=== PATIENT | female | born 1985 ===

== ENCOUNTER 2017-11-07 05:34 | Inpatient (IN) | payer OTHER ==
[2017-11-07] MEDS ORDERED: Ondansetron 4 MG/2 ML SDV IVPUSH PRN (06:18)
[2017-11-07] MEDS ORDERED: Lidocaine 1% 50 ML MDV INJECT ONE (06:18)
[2017-11-07] MEDS ORDERED: Sodium Chloride 0.9% 10 ML Syringe FLUSH PRN (06:18)
[2017-11-07] MEDS ORDERED: Terbutaline 1 MG/ML SDV IV ONE (07:30)
[2017-11-07] MEDS ORDERED: Ampicillin 2 GM in Sodium Chloride 0.9% 100 ML IV ONE (07:30)
--- NOTE | 2017-11-07 08:08 | HP ---
DATE OF ADMISSION: 11/07/2017 ADMISSION DIAGNOSIS: A 39 and 2/7th week intrauterine , breech presentation, increased distance from the hospital. HISTORY OF PRESENT ILLNESS: The patient is a 32-year-old 6, para 5-0-0-5 white female who is admitted for external cephalic version/induction of labor/possible section if version is not successful. 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 Her DAIJA is 11/12/2017, is dated by an early ultrasound done on 05/10/2017 at 13 weeks. This is supported by a second ultrasound done later in the . She is admitted for an attempt at external cephalic version. On last evaluation on 11/02/2017, the baby was transverse with head to the right. Decision was made to attempt an external cephalic version and if unsuccessful, to proceed with primary section. The procedures, their risks, limitations, and alternatives of care were discussed in detail with the patient. She appears to understand and wishes to proceed. Her previous deliveries include 5 vaginal deliveries in 2005, 2006, 2012, 2013, and 2015. The first one was female. The rest were males, all in the 6-pound 8-ounce to 7- pound 12-ounce range. Children's names are Penelope, Qing, Brooks, Vincent, Chauncey respectively. course has been relatively unremarkable. The patient was first seen in April and was seen on a regular basis since that time. Her weight gain has been from a pregravid weight of 172 to the most recent weight of 186 for a 14-pound weight gain. Her vital signs have been stable throughout the course and her fundal height growth has been appropriate. She declined genetic testing. She does report increased distance from the hospital being approximately 1 to 1.5 hours away from the hospital. Her flu vaccine vaccination was done on 10/04/2017. She was group B strep positive. She is Rh negative. She plans to breastfeed. RhoGAM was given on 08/23/2017. LABORATORY TESTING IN : Shows blood to be B negative with negative antibody screen. Hemoglobin on first visit was 13.3 and platelets were 271,000. Second trimester testing showed hemoglobin of 12.1 and platelets 229,000. Her 1-hour GTT was normal at 111. Antibody screen on 08/23/2017 was negative and Rh immunoglobulin was given. Group B strep screen 10/25/2017 was positive. ALLERGIES: Peaches, milk, cashews, pistachios. No known drug allergies. CURRENT MEDICATIONS: vitamins and occasional Gaviscon and ranitidine p.r.n. PAST MEDICAL HISTORY: 1. Vaginal delivery x5. 2. History of elevated liver enzymes in the remote past. FAMILY HISTORY: One brother secondary to suicide. Mom with hypothyroidism on medications. Father is alive and well. Two sisters are alive and well. Maternal grandmother alive and well. Maternal grandfather secondary to an CO. Paternal grandmother , cause unknown. Paternal grandfather secondary to heart disease and adult-onset diabetes mellitus. No bleeding, clotting, anesthesia, or -related problems noted in the family. SOCIAL HISTORY: The patient is . is Kenneth Gonzalez. 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 They live in [place], [place]. She does not use any significant amounts of alcohol, drugs, or tobacco. REVIEW OF SYSTEMS: GENERAL: The patient has no concerns. She has normal discomforts. The baby has been active. SKIN: Negative. CARDIOVASCULAR: No exercise intolerance or chest pain noted. RESPIRATORY: No infectious symptoms or shortness of breath. BREASTS: Changes associated with . The patient does plan to breastfeed. GI: Negative. : Increased fundal height consistent with . Baby is active. EXTREMITIES/MUSCULOSKELETAL: Occasional edema. NEUROLOGICAL: Negative. PHYSICAL EXAMINATION: VITAL SIGNS: Pregravid weight 172, weight at last visit 186, blood pressure then was 110/68, heart rate 135, her height is 5 feet 2 inches and pre gravid, BMI was 31.5. GENERAL: The patient is a well-developed, well-nourished, pleasant female, stated age, in no acute distress. SKIN: Warm and dry without lesions. LUNGS: Clear with good breath sounds in all lung daly. CARDIOVASCULAR: Shows regular rate and rhythm without murmurs. BREASTS: Exam is deferred having been done at the time of first visit and found to be normal. ABDOMEN: Protuberant with with fundal height of 38 cm. Baby in transverse presentation by Erich maneuvers and confirmed by ultrasound. Head is to the right. Both legs are down in the lower uterine segment. : Cervix is 2 cm, soft, 70% effaced, -3 station. EXTREMITIES AND NEUROLOGICAL: Grossly within normal limits. ASSESSMENT: 1. Intrauterine at 39 and 2/7th weeks gestational age upon admission for elective external cephalic version, possible section, possible induction of labor. The procedures of external cephalic version and section along with induction of labor are discussed in detail with the patient. She would like to attempt external cephalic version. If unsuccessful, would like to proceed to section. If successful, will proceed to induction of labor with Pitocin and artificial rupture of membranes eventually. 2. Anesthesia and Surgical Department are made aware of her presence in the hospital. 3. Rh negative - The patient is a candidate for Rh immunoglobulin if baby is found to be Rh positive. 4. The patient is group B strep positive and if induction occurs, we will proceed with ampicillin prophylaxis per protocol. 5. If section is performed, we will do CBC, type and screen preoperatively. PLAN: 1. Admit and monitor for a short period of time to allow for reassurance of well being. 2. IV access. We will proceed with bedside monitoring and ultrasound. If transverse or breech presentation is confirmed, we will proceed to external cephalic version. If this is successful, we will proceed to induction of labor with Pitocin. 3. Consents for external cephalic version and for primary section to be obtained upon admission. 4. CBC, type and screen to be performed upon admission. NUBIA /[id number]
[2017-11-07] MEDS: Lactated Ringers 1,000 ML IV SCH ×4 (08:21→14:44)
[2017-11-07] MEDS ORDERED: ePHEDrine 50 MG/ML SDV IVPUSH PRN (08:27)
[2017-11-07] MEDS ORDERED: diphenhydrAMINE 50 MG/ML SDV IVPUSH PRN (08:27)
[2017-11-07] MEDS ORDERED: fentaNYL 100 MCG/2 ML SDV EPIDUR PRN (08:27)
[2017-11-07] MEDS ORDERED: Bupivacaine/fentaNYL/NS 100 ML Bag EPIDUR SCH (08:30)
[2017-11-07] MEDS ORDERED: Oxytocin/Lactated Ringers 10 UNIT/1,000 ML BAG IV SCH (09:00)
[2017-11-07] MEDS ORDERED: Ampicillin 1 GM in Sodium Chloride 0.9% 100 ML IV SCH (11:30)
[2017-11-07] MEDS: Ampicillin 1 GM in Sodium Chloride 0.9% 100 ML IV SCH ×2 (12:17→16:14)
--- NOTE | 2017-11-07 13:18 | PCM.PREANE ---
Preanesthetic Assessment - Anesthesia/Transfusion/Family Hx Anesthesia History: Prior Anesthesia Without Reaction Family History of Anesthesia Reaction: No Transfusion History: No Prior Transfusion(s) - Review of Systems General: No Symptoms Pulmonary: No Symptoms Cardiovascular: No Symptoms Gastrointestinal: No Symptoms Neurological: No Symptoms Other: Reports: None - Physical Assessment Pulse: 94 O2 Sat by Pulse Oximetry: 100 Respiratory Rate: 16 Blood Pressure: 126/64 Temperature: 36.3 C Vital Signs: Last Vital Signs Temp 36.6 C 11/07/17 06:18 Pulse 74 11/07/17 06:18 Resp 16 11/07/17 06:18 BP 121/72 11/07/17 06:18 Pulse Ox 100 11/07/17 08:27 Height: 1.57 m Weight: 83.552 kg ASA Class: 2 Mental Status: Alert & Oriented x3 Airway Class: Mallampati = 1 Dentition: Reports: Normal Dentition Thyro-Mental Finger Breadths: 3 Mouth Opening Finger Breadths: 3 ROM/Head Extension: Full Lungs: Clear to Auscultation, Normal Respiratory Effort Cardiovascular: Regular Rate, Regular Rhythm - Lab Values: Laboratory Last Values WBC 5.87 K/mm3 (3.98-10.04) 11/07/17 09:37 RBC 4.02 M/mm3 (3.98-5.22) 11/07/17 09:37 Hgb 10.9 gm/L (11.2-15.7) L 11/07/17 09:37 Hct 34.1 % (34.1-44.9) 11/07/17 09:37 MCV 84.8 fl (79.4-94.8) 11/07/17 09:37 MCH 27.1 pg (25.6-32.2) 11/07/17 09:37 MCHC 32.0 g/dl (32.2-35.5) L 11/07/17 09:37 RDW Std Deviation 45.2 fL (36.4-46.3) 11/07/17 09:37 Plt Count 165 K/mm3 (182-369) L 11/07/17 09:37 MPV 11.8 fl (9.4-12.3) 11/07/17 09:37 Neut % (Auto) 71.5 % (34.0-71.1) H 11/07/17 09:37 Lymph % (Auto) 19.9 % (19.3-51.7) 11/07/17 09:37 Desha % (Auto) 7.3 % (4.7-12.5) 11/07/17 09:37 Eos % (Auto) 0.9 (0.7-5.8) 11/07/17 09:37 Baso % (Auto) 0.2 % (0.1-1.2) 11/07/17 09:37 Neut # (Auto) 4.20 K/mm3 (1.56-6.13) 11/07/17 09:37 Lymph # (Auto) 1.17 K/mm3 (1.18-3.74) L 11/07/17 09:37 Desha # (Auto) 0.43 K/mm3 (0.24-0.36) H 11/07/17 09:37 Eos # (Auto) 0.05 K/mm3 (0.04-0.36) 11/07/17 09:37 Baso # (Auto) 0.01 K/mm3 (0.01-0.08) 11/07/17 09:37 Blood Type B NEGATIVE 11/07/17 09:37 Gel Antibody Screen Negative 11/07/17 09:37 - Allergies Allergies/Adverse Reactions: Allergies Allergy/AdvReac Type Severity Reaction Status Date / Time apricot [Apricot] Allergy Hives Verified 05/27/14 09:53 sahra flavor Allergy Hives Verified 05/27/14 09:54 peach [Franklin] Allergy Hives Verified 05/27/14 09:52 tree nut [Tree Nut] Allergy Hives Verified 05/27/14 09:57 milk AdvReac Stomach Verified 08/08/16 07:21 Upset celery Allergy Hives Uncoded 05/27/14 09:55 - Anesthesia Plan Pre-Op Medication Ordered: None - Acknowledgements Anesthesia Type Planned: Epidural Pt an Appropriate Candidate for the Planned Anesthesia: Yes Alternatives and Risks of Anesthesia Discussed w Pt/Guardian: Yes Pt/Guardian Understands and Agrees with Anesthesia Plan: Yes PreAnesthesia Questionnaire - Past Health History Medical/Surgical History: Denies Medical/Surgical History Gastrointestinal History: Reports: GERD GEOSPATIAL SPECIALIST History: Reports: Other OB/BYN History: C5P4, here for external version or - SUBSTANCE USE Smoking Status *Q: Never Smoker Tobacco Use Within Last Twelve Months: No Second Hand Smoke Exposure: No Days Per Week of Alcohol Use: 0 Number of Drinks Per Day: 0 Total Drinks Per Week: 0 Recreational Drug Use History: No - HOME MEDS Home Medications: Home Meds Vit with Ca/FA/Iron [ Plus Iron] 1 each PO DAILY #100 tablet [Rx] Mg Trisilicate/AlH/NahCO3/AA [Gaviscon 80-14.2 MG] 1 tab PO DAILY 11/07/17 [ History] Ranitidine HCl [Ranitidine] 1 tab PO DAILY 11/07/17 [History] - CURRENT (IN HOUSE) MEDS Current Meds: Current Medications Diphenhydramine HCl (Benadryl) 25 mg IVPUSH Q6H PRN PRN Reason: Itching Ephedrine Sulfate (Ephedrine Sulfate) 5 mg IVPUSH ASDIRECTED PRN PRN Reason: HYPOTENTSION Fentanyl (Sublimaze) 100 mcg EPIDUR Q3H PRN PRN Reason: PAIN Last Admin: 11/07/17 13:12 Dose: 100 mcg Fentanyl/Bupivacaine HCl (Fentanyl/Bupivacaine/Ns 2 Mcg-0.125% 100 Ml) 100 ml EPIDUR ASDIRECTED DALE Last Admin: 11/07/17 13:13 Dose: 100 ml Lactated Ringer's (Ringers, Lactated) 1,000 mls @ 100 mls/hr IV ASDIRECTED DALE Last Admin: 11/07/17 12:30 Dose: 999 mls/hr Oxytocin/Lactated Ringer's (Pitocin In Lr 10 Units/1,000 Ml) 10 unit in 1,000 mls @ 12 mls/hr IV TITRATE DALE; 2 MUNITS/MIN PRN Reason: Protocol Last Titration: 11/07/17 11:28 Dose: 10 munits/min, 60 mls/hr Ampicillin Sodium 1 gm/ Sodium (Chloride) 100 mls @ 200 mls/hr IV Q4H DALE Last Admin: 11/07/17 12:17 Dose: 200 mls/hr Ondansetron HCl (Zofran) 4 mg IVPUSH Q4H PRN PRN Reason: Nausea/Vomiting Sodium Chloride (Saline Flush) 10 ml FLUSH ASDIRECTED PRN PRN Reason: Keep Vein Open Discontinued Medications Ampicillin Sodium 2 gm/ Sodium (Chloride) 100 mls @ 200 mls/hr IV ONETIME ONE Stop: 11/07/17 07:59 Last Admin: 11/07/17 08:21 Dose: 200 mls/hr Ampicillin Sodium 1 gm/ Sodium (Chloride) 100 mls @ 200 mls/hr IV Q4H DALE Lidocaine HCl (Xylocaine 1%) 10 ml INJECT ONETIME ONE Stop: 11/07/17 06:19 Terbutaline Sulfate (Brethine) 0.25 mg IV ONETIME ONE Stop: 11/07/17 07:31 Last Admin: 11/07/17 12:17 Dose: Not Given
--- NOTE | 2017-11-07 19:00 | PCM.SN ---
- Free Text/Narrative Note: Delivery note: Loly was admitted this a.m. for elective induction of labor. She previously had been diagnosed with a transverse/breech lie/presentation and was prepared for an external cephalic version. Upon admission the baby is noted to be head down and this was confirmed with ultrasound. Cervix was dilated 2+ centimeters, 80% effaced, -3 station. Decision was made to proceed with Pitocin induction. After the patient reached approximately 4 cm artificial rupture membranes was undertaken with resultant clear amniotic fluid. She progressed slowly to approximately 5 cm. She had multiple decelerations and at least 2 periods of bradycardia. These results spontaneously however. The patient had an epidural placed for labor and analgesia. She very rapidly went from 5 cm to complete and delivered spontaneously at 1819 hrs. She delivered a viable, booth, 3200 g (7 lbs. 1 oz.) female , length of 19 inches in a occiput anterior position. Baby had tight nuchal cord which was not reducible over the head or around the baby's body. The baby delivered without reducing the cord The umbilical cord was then clamped by myself and was cut by the father of the babyat that point. Cord blood was obtained. The umbilical cord was noted to have 3 blood vessels. Patient was noted to have a first-degree perineal laceration. This was repaired with 3-0 Monocryl with a single figure-of -eight suture. The placenta delivered in a Padron presentation at approximately 1824 hrs.. There was, approximately, a 600 mL clot behind the placenta. This clot appeared to be a relative recent formation. Total blood loss was felt to be approximately 800 mL. Patient plans to breast-feed. Condition good.
[2017-11-07] MEDS ORDERED: Lanolin 100% Cream 7 GM Tube TOP PRN (19:32)
[2017-11-07] MEDS ORDERED: Docusate Sodium 100 MG Cap PO PRN (19:32)
[2017-11-07] MEDS ORDERED: Acetaminophen 325 MG Tab PO PRN (19:32)
[2017-11-07] MEDS ORDERED: Benzocaine/Menthol 20%-0.5% Spray 56 GM Canister TOP PRN (19:32)
[2017-11-07] MEDS ORDERED: Witch Hazel Medicated Pads 100/Jar TOP PRN (19:32)
[2017-11-07] MEDS ORDERED: Bupivacaine 0.25% 10 ML SDV ONE (22:22)
[2017-11-08] MEDS: Ibuprofen 600 MG Tab PO PRN ×4 (00:45→16:02)
--- NOTE | 2017-11-08 05:41 | PCM.SN ---
- Free Text/Narrative Note: day one: Patient doing well. She is ambulating well. Minimal lochia. Voiding without concerns and nursing without problems. Patient is afebrile, vital signs stable. If she is at umbilicus, soft, nontender. Legs nontender. Assessmentpostpartum day 1 doing well. routine care. Home tomorrow.
[2017-11-08] MEDS ORDERED: Prenatal Multivitamin with Calcium/Folic Acid/Iron Tab PO SCH (09:00)
--- NOTE | 2017-11-08 09:45 | PCM48HPAN ---
Post Anesthesia Note - EVALUATION WITHIN 48HRS OF ANESTHETIC Vital Signs in Normal Range: Yes Patient Participated in Evaluation: Yes Respiratory Function Stable: Yes Airway Patent: Yes Cardiovascular Function Stable: Yes Hydration Status Stable: Yes Pain Control Satisfactory: Yes Nausea and Vomiting Control Satisfactory: Yes Mental Status Recovered: Yes - COMMENTS/OBSERVATIONS Free Text/Narrative:: Patient doing well resting in bed. No complaints of back pain, residual numbness or tingling to LE, or headaches.
[2017-11-08 14:18] VITALS: BP 112/59
--- NOTE | 2017-11-08 17:27 | PCM.DCSUM1 ---
Discharge Summary - Hospital Course Free Text/Narrative:: Loly was admitted this a.m. for elective induction of labor. She previously had been diagnosed with a transverse/breech lie/presentation and was prepared for an external cephalic version. Upon admission the baby is noted to be head down and this was confirmed with ultrasound. Cervix was dilated 2+ centimeters, 80% effaced, -3 station. Decision was made to proceed with Pitocin induction. After the patient reached approximately 4 cm artificial rupture membranes was undertaken with resultant clear amniotic fluid. She progressed slowly to approximately 5 cm. She had multiple decelerations and at least 2 periods of bradycardia. These results spontaneously however. The patient had an epidural placed for labor and analgesia. She very rapidly went from 5 cm to complete and delivered spontaneously at 1819 hrs. She delivered a viable, booth, 3200 g ( 7 lbs. 1 oz.) female , length of 19 inches in a occiput anterior position. Baby had tight nuchal cord which was not reducible over the head or around the baby's body. The baby delivered without reducing the cord The umbilical cord was then clamped by myself and was cut by the father of the babyat that point. Cord blood was obtained. The umbilical cord was noted to have 3 blood vessels. Patient was noted to have a first-degree perineal laceration. This was repaired with 3-0 Monocryl with a single [id number] suture. The placenta delivered in a Padron presentation at approximately 1824 hrs.. There was, approximately, a 600 mL clot behind the placenta. This clot appeared to be a relative recent formation. Total blood loss was felt to be approximately 800 mL. Patient plans to breast-feed. patient is doing very well. Her vital signs are stable. She is afebrile. She is ambulating well, nursing without problems and voiding without concerns. She is requesting discharge home. - Discharge Data Discharge Date: 11/08/17 Discharge Disposition: DC/Tfer to [facility] Condition: Good - Patient Instructions Diet: Regular Diet as Tolerated (Nursing diet with increased calories and calcium as directed) Activity: As Tolerated (No intercourse or tampons until patient's stopped bleeding) Driving: May Drive Today Showering/Bathing: May Shower (May take a bath) Notify Provider of: Fever, Increased Pain, Swelling and Redness, Nausea and/or Vomiting - Discharge Plan Home Medications: Home Meds Vit with Ca/FA/Iron [ Plus Iron] 1 each PO DAILY #100 tablet [Rx] Mg Trisilicate/AlH/NahCO3/AA [Gaviscon 80-14.2 MG] 1 tab PO DAILY 11/07/17 [ History] Ranitidine HCl [Ranitidine] 1 tab PO DAILY 11/07/17 [History] Acetaminophen [Tylenol] 650 mg PO Q4H PRN tablet 11/08/17 [Rx] Ibuprofen [IJD: Ibuprofen] 600 mg PO Q4H PRN tablet 11/08/17 [Rx] Patient Handouts: Vaginal Delivery, Care After Referrals: Magan Walton MD [Primary Care Provider] - ([facility] - Discharge Summary/Plan Comment DC Time >30 min.: No Discharge Summary/Plan Comment: Discharge instructions: 1. Discharge home 2. Diet, activity and follow-up discussed with patient. Recommend nursing diet with increased calories and calcium. 3. Precautions given concern increased pain, bleeding, temperature, signs/ symptoms of DVT/PE. 4. Medications per home medication was printed, discussed with and given to the patient. 5. Return to clinic-Dr. Walton-12/06/2017 Diagnosis: Term -delivered Condition: Good - Patient Data Vitals - Most Recent: Last Vital Signs Temp 37.0 C 11/08/17 12:00 Pulse 79 11/08/17 12:00 Resp 16 11/08/17 12:00 BP 112/59 L 11/08/17 12:00 Pulse Ox 97 11/08/17 12:00 Weight - Most Recent: 83.552 kg I&O - Last 24 hours: Intake & Output 11/08/17 11/08/17 11/08/17 06:59 14:59 22:59 Intake Total 121 Balance 121 Lab Results - Last 24 hrs: Laboratory Results - last 24 hr 11/08/17 11/08/17 Range/Units 06:09 06:09 WBC 9.10 (3.98-10.04) K/mm3 RBC 3.45 L (3.98-5.22) M/mm3 Hgb 9.4 L (11.2-15.7) gm/L Hct 29.4 L (34.1-44.9) % MCV 85.2 (79.4-94.8) fl MCH 27.2 (25.6-32.2) pg MCHC 32.0 L (32.2-35.5) g/dl RDW Std Deviation 44.9 (36.4-46.3) fL Plt Count 179 L (182-369) K/mm3 MPV 11.5 (9.4-12.3) fl Blood Type Cancelled Gel Antibody Screen Cancelled Screen 0 ros/5 flds - neg RhIG Candidate? Yes Rhogam Indicated Cancelled Med Orders - Current: Current Medications Acetaminophen (Tylenol) 650 mg PO Q4H PRN PRN Reason: mild pain or fever Benzocaine/Menthol (Dermoplast Pain Relief Graham) 0 gm TOP ASDIRECTED PRN PRN Reason: Perineal Comfort Measure Docusate Sodium (Colace) 100 mg PO BID PRN PRN Reason: Constipation Last Admin: 11/08/17 10:29 Dose: 100 mg Emollient Ointment (Lansinoh Hpa) 0 gm TOP ASDIRECTED PRN PRN Reason: Sore Nipples Ibuprofen (Motrin) 600 mg PO Q4H PRN PRN Reason: Mild pain or fever Last Admin: 11/08/17 16:02 Dose: 600 mg Prenat Multivit/[place]/Iron/Folic Ac ( Plus Iron) 1 each PO DAILY [facility] Last Admin: 11/08/17 08:15 Dose: 1 each Witch Ayla (Tucks) 1 pad TOP ASDIRECTED PRN PRN Reason: Hemorrhoid pain Discontinued Medications Bupivacaine HCl (Sensorcaine-Mpf 0.25%) 10 ml .ROUTE .STK-MED ONE Stop: 11/07/17 22:23 Diphenhydramine HCl (Benadryl) 25 mg IVPUSH Q6H PRN PRN Reason: Itching Ephedrine Sulfate (Ephedrine Sulfate) 5 mg IVPUSH ASDIRECTED PRN PRN Reason: HYPOTENTSION Fentanyl (Sublimaze) 100 mcg EPIDUR Q3H PRN PRN Reason: PAIN Last Admin: 11/07/17 13:12 Dose: 100 mcg Fentanyl/Bupivacaine HCl (Fentanyl/Bupivacaine/Ns 2 Mcg-0.125% 100 Ml) 100 ml EPIDUR ASDIRECTED [facility] Last Admin: 11/07/17 13:13 Dose: 100 ml Ampicillin Sodium 2 gm/ Sodium (Chloride) 100 mls @ 200 mls/hr IV ONETIME ONE Stop: 11/07/17 07:59 Last Admin: 11/07/17 08:21 Dose: 200 mls/hr Ampicillin Sodium 1 gm/ Sodium (Chloride) 100 mls @ 200 mls/hr IV Q4H DALE Lactated Ringer's (Ringers, Lactated) 1,000 mls @ 100 mls/hr IV ASDIRECTED DALE Last Admin: 11/07/17 14:44 Dose: 250 mls/hr Oxytocin/Lactated Ringer's (Pitocin In Lr 10 Units/1,000 Ml) 10 unit in 1,000 mls @ 12 mls/hr IV TITRATE DALE; 2 MUNITS/MIN PRN Reason: Protocol Last Titration: 11/07/17 18:21 Dose: 500 mls/hr Ampicillin Sodium 1 gm/ Sodium (Chloride) 100 mls @ 200 mls/hr IV Q4H [facility] Last Admin: 11/07/17 16:14 Dose: 200 mls/hr Lidocaine HCl (Xylocaine 1%) 10 ml INJECT ONETIME ONE Stop: 11/07/17 06:19 Last Admin: 11/07/17 23:19 Dose: Not Given Ondansetron HCl (Zofran) 4 mg IVPUSH Q4H PRN PRN Reason: Nausea/Vomiting Sodium Chloride (Saline Flush) 10 ml FLUSH ASDIRECTED PRN PRN Reason: Keep Vein Open Terbutaline Sulfate (Brethine) 0.25 mg IV ONETIME ONE Stop: 11/07/17 07:31 Last Admin: 11/07/17 12:17 Dose: Not Given *Q Meaningful Use (DIS) - VTE *Q VTE Criteria *Q: - Stroke *Q Stroke Criteria *Q: - AMI *Q AMI Criteria *Q:
== END 2017-11-08 19:10 | disposition home or self-care (01) | DRG 775 ==
LOC: JD.OB 07:14 → OBSVTOIN 18:19 → JD.OB 11-08 08:12
PROVIDERS: ADMIT Obstetrics & Gynecology; ATTEND Obstetrics & Gynecology
PROC: 10E0XZZ Delivery of Products of Conception, External Approach (ICD-10-PCS; principal; 2017-11-07)
PROC: 3E033VJ Introduction of Other Hormone into Peripheral Vein, Percutaneous Approach (ICD-10-PCS; 2017-11-07)
PROC: 10907ZC Drainage of Amniotic Fluid, Therapeutic from Products of Conception, Via Natural or Artificial Opening (ICD-10-PCS; 2017-11-07)
PROC: 0HQ9XZZ Repair Perineum Skin, External Approach (ICD-10-PCS; 2017-11-07)
PROC: 00HU33Z Insertion of Infusion Device into Spinal Canal, Percutaneous Approach (ICD-10-PCS; 2017-11-07)
PROC: 3E0R3BZ Introduction of Anesthetic Agent into Spinal Canal, Percutaneous Approach (ICD-10-PCS; 2017-11-07)
DX: O99.824 Streptococcus B carrier state complicating childbirth (principal); O70.0 First degree perineal laceration during delivery; O69.81X0 Labor and delivery complicated by cord around neck, without compression, not applicable or unspecified; Z3A.39 39 weeks gestation of pregnancy; Z37.0 Single live birth; O76 Abnormality in fetal heart rate and rhythm complicating labor and delivery; Z91.011 Allergy to milk products; Z91.018 Allergy to other foods
CPT/HCPCS: 36415; 51702; 59300; 59409; 85025; 85027; 85461; 86850; 86900; 86901; A9270-GY; J0290; J2590; J2790; J3010; J7030; J7120